=== PATIENT | male | born 1995 | race Caucasian/White ===

== ENCOUNTER 2017-07-28 09:43 | Emergency (ER) | payer OTHER ==
[~2017-07-28] VITALS: Ht 177.8 cm; Wt 70.0 kg
[2017-07-28 09:47] VITALS: TEMP 36.8; Ht 177.8 cm; Wt 70.0 kg
[2017-07-28] MEDS ORDERED: ACETAMINOPHEN 500 MG TAB PO STA (10:25)
[2017-07-28] MEDS ORDERED: IBUPROFEN 600 MG TAB PO STA (10:25)
[2017-07-28] MEDS ORDERED: BENZONATATE 100MG CAP PO ONE (10:30)
--- NOTE | 2017-07-28 10:35 | EMERGENCY ROOM VISIT NOTE ---
History Report prepared by Sam: Bob Mcguire Under the Supervision of: Dr. Sabas Kim M.D. First contact with patient: 10:06 Chief Complaint: FLU LIKE SX Stated Complaint: FLU LIKE SYMPTOMS, FEVER, COUGH, VOMITING History of Present Illness The patient is a 21 year old white male without a past medical history who presents to the ED with a cc of a fever beginning three days ago. Positive dry cough, vomiting, and fatigue. Negative sore throat, chest pain, shortness of breath, nausea, abdominal pain, diarrhea, melena, hematochezia, or abnormal urinary symptoms. His temperature in triage was 36.8 C. He notes that his girlfriend is sick with similar symptoms as well. He is from [place] and was there recently for winter break. He denies any recent antibiotic use, stream or well water exposure, recent bites, or recent camping trips. He occasionally drinks alcohol but does not smoke tobacco products. He believes that his episode of vomiting yesterday was not from something he ate. Source of History: patient Onset: three days ago Position: other (Global) Symptom Intensity: 36.8 C Quality: other (Fever) Timing: resolved Associated Symptoms: + cough, + vomiting, + fatigue, No sorethroat, No chest pain, No SOB, No nausea, No abdominal pain, No melena, No hematochezia, No diarrhea, No urinary symptoms Review of Systems See HPI for pertinent positives and negatives. A total of ten systems were reviewed and were otherwise negative. Past Medical & Surgical No chronic medical history Family History Patient reports no known family medical history. Social History Smoking Status: Former Smoker Smokeless Tobacco Use: No Alcohol Use: occasionally Drug Use: none Marital Status: in relationship Occupation Status: student Current/Historical Medications No Active Prescriptions or Reported Meds Allergies Coded Allergies: No Known Allergies (Unverified , 07/28/17) Physical Exam Vital Signs Date Time Temp Pulse Resp B/P (MAP) Pulse Ox O2 Delivery O2 Flow Rate FiO2 07/28/17 09:47 36.8 93 18 115/65 95 Room Air Physical Exam GENERAL: Awake, alert, well-appearing, NAD HENT: Normocephalic, atraumatic. Mild pharyngeal erythema. No exudate. No tonsillar swelling or uvular swelling or deviation. EYES: Normal conjunctiva. Sclera non-icteric. NECK: Supple. No nuchal rigidity. FROM. No stridor. RESPIRATORY: CTAB, no rhonchi, wheezing, crackles CARDIAC: RRR, no MRG ABDOMEN: Soft, NTND, BS+ MSK: No chest wall TTP, no LE edema NEURO: GCS 15, CN 2-12 intact, moves all 4s on command SKIN: No rash or jaundice noted. Medical Decision & Procedures ER Provider Diagnostic Interpretation: Radiology results as stated below per my review and radiologist interpretation: CHEST 2 VIEWS ROUTINE CLINICAL HISTORY: cough, fever, chills COMPARISON STUDY: No previous studies for comparison. FINDINGS: Lung volumes are normal. There is mild S-shaped curvature of the thoracic spine. No pneumothorax or pleural effusion is noted. Cardiac size is normal. Mediastinal contours are normal. There is no evidence for pulmonary edema. Apparent lower lung airspace opacity shown on lateral projection is likely artifactual. IMPRESSION: 1. No definite acute cardiopulmonary findings. 2. Apparent lower lung opacity shown on lateral projection is not confirmed on the frontal projection and is likely artifactual. Electronically signed by: Efren Krause M.D. 07/28/2017 11:17 AM Dictated Date/Time: 07/28/2017 11:15 AM Laboratory Results Test 07/28/17 10:11 Influenza Type A Antigen Neg for Influ A (NEG) Influenza Type B Antigen Neg for Influ B (NEG) Laboratory results reviewed by me Medications Administered Medications (Trade) Dose Ordered Sig/Lisbeth Route Start Time Stop Time Status Last Admin Dose Admin Acetaminophen (Tylenol Tab) 1,000 mg NOW STAT PO 07/28/17 10:25 07/28/17 10:26 DC 07/28/17 10:42 1,000 MG Benzonatate (Tessalon Perles Cap) 100 mg NOW ONCE PO 07/28/17 10:30 07/28/17 10:31 DC 07/28/17 10:42 100 MG Ibuprofen (Motrin Tab) 800 mg STK-MED ONCE .ROUTE 07/28/17 10:40 07/28/17 10:41 DC 07/28/17 10:42 800 MG ED Course 1006: The patient was evaluated in room C4. A complete history and physical exam was performed. 1145: I reevaluated the patient. Discussed results and discharge instructions: He verbalized understanding and agreement. The patient is ready for discharge. Medical Decision The patient is a 21 year old white male without a past medical history who presents to the ED with a cc of a fever beginning three days ago. Positive dry cough, vomiting, and fatigue. Negative sore throat, chest pain, shortness of breath, nausea, abdominal pain, diarrhea, melena, hematochezia, or abnormal urinary symptoms. Differential diagnosis: Etiologies such as viral syndrome, otitis, pharyngitis, pneumonia, influenza, meningitis, urinary tract infection, sepsis, bacteremia, as well as others were entertained. Patient was seen and evaluated the bedside. Patient has had some flulike symptoms symptoms for several days. Patient did have one episode of vomiting yesterday. Patient did recently travel to [place] approximately one to 2 months prior over his one or skin break. Patient of note the cervical from does have some similar symptoms. Patient otherwise is fairly well-appearing. Patient is non-stridulous and has a fairly unremarkable exam and stable vital signs. Patient did have a negative flu negative chest x-ray. They did state that there was likely artifactual appearance of the lower lobe. Given that the patient has not had any productive sputum will not treat at this time. Patient was told to continue [id number] type therapy and to follow-up with [facility] or return to the emergency department as needed. I do not believe that the patient warrants any blood work or further imaging at this time. Patient has no signs of meningismus. Patient was given strict follow -up, discharge, and return precautions. All questions were answered. Patient was deemed suitable for outpatient follow-up at this time. Patient agreed with the plan of care and was safely discharged home. Medication Reconcilliation Current Medication List: was personally reviewed by me Blood Pressure Screening Patient's blood pressure: Normal blood pressure Blood pressure disposition: Did not require urgent referral Impression Primary Impression: Influenza-like symptoms Additional Impression: Acute bronchitis Scribe Attestation The scribe's documentation has been prepared under my direction and personally reviewed by me in its entirety. I confirm that the note above accurately reflects all work, treatment, procedures, and medical decision making performed by me. Departure Information Dispostion Home / Self-Care Prescriptions No Active Prescriptions or Reported Meds Referrals No Doctor, Assigned (PCP) [facility] Forms HOME CARE DOCUMENTATION FORM, IMPORTANT VISIT INFORMATION Patient Instructions Deep Coughing, ED Fever Control, My [facility] Additional Instructions Please return to the emergency department if you have worsening or recurrent symptoms not amenable to at-home treatment. Please call for a follow-up appointment with her primary care physician. Please take your medications as prescribed. If you have other concerns and/or complaints please feel free to also call your primary care physician's office or return the ED for further evaluation, management, and treatment. You may take 600 mg Ibuprofen every 6 hours as needed for pain with food. You may take tylenol 1000 mg every 6 hours as needed for pain. You may take motrin and tylenol separately or at the same time. Take your medications as prescribed. Continue to hydrate liberally with clear fluids and advance her diet as tolerated. Please follow-up with [facility] and/or the emergency department as needed. Consider tessalon perrles or cepacol for sore throat/cough suppressant. Mucinex can be helpful to help you expectorate. You have been examined and treated today on an emergency basis only. This is not a substitute for, or an effort to provide, complete comprehensive medical care. It is impossible to recognize and treat all injuries or illnesses in a single emergency department visit. It is therefore important that you follow up closely with [facility], your PCP, and/or your specialist(s). Call as soon as possible for an appointment. Thank you for your time and consideration. I look forward to speaking with you again soon. Please don't hesitate to call us if you have any questions. Problem Qualifiers
[2017-07-28] MEDS ORDERED: IBUPROFEN 800 MG TAB ONE (10:40)
[2017-07-28 11:18] LABS: INFLUENZA B ANTIGEN Neg for Influ B (NEG)
--- NOTE | 2017-07-28 11:18 | DIAGNOSTIC IMAGING REPORT ---
CHEST 2 VIEWS ROUTINE CLINICAL HISTORY: cough, fever, chills COMPARISON STUDY: No previous studies for comparison. FINDINGS: Lung volumes are normal. There is mild S-shaped curvature of the thoracic spine. No pneumothorax or pleural effusion is noted. Cardiac size is normal. Mediastinal contours are normal. There is no evidence for pulmonary edema. Apparent lower lung airspace opacity shown on lateral projection is likely artifactual. IMPRESSION: 1. No definite acute cardiopulmonary findings. 2. Apparent lower lung opacity shown on lateral projection is not confirmed on the frontal projection and is likely artifactual. Electronically signed by: Efren Krause M.D. 07/28/2017 11:17 AM Dictated Date/Time: 07/28/2017 11:15 AM
[2017-07-28 12:11] VITALS: BP 99/51; PULSE 90; O2SAT 97
== END 2017-07-28 12:12 | disposition home or self-care (01) ==
LOC: C.EDB 09:45 → C.EDC 12:12
DX: R50.9 Fever, unspecified (principal); R05 Cough; R11.10 Vomiting, unspecified; R53.83 Other fatigue; J20.9 Acute bronchitis, unspecified; Z87.891 Personal history of nicotine dependence

== ENCOUNTER 2017-07-30 06:34 | Emergency (ER) | payer OTHER ==
[~2017-07-30] VITALS: Ht 177.8 cm; Wt 69.6 kg
[2017-07-30 06:39] VITALS: TEMP 37; Ht 177.8 cm; Wt 69.6 kg
[2017-07-30] MEDS ORDERED: KETOROLAC TROMETHAMINE 30 MG/ML VIAL IV STA (06:51)
[2017-07-30] MEDS ORDERED: SODIUM CHLORIDE 0.9% 1000ML 1,000 ML IV STA (06:51)
[2017-07-30] MEDS ORDERED: ONDANSETRON INJ 2 MG/ML 2 ML VIAL IV STA (06:51)
[2017-07-30] MEDS ORDERED: ALBUTEROL 0.083% NEBU SOLN 3 ML VIAL INH STA (06:51)
[2017-07-30] MEDS ORDERED: ALBUTEROL HFA 8 GM INHALER INH ONE ×2 (07:00→09:00)
--- NOTE | 2017-07-30 07:06 | DIAGNOSTIC IMAGING REPORT ---
CHEST ONE VIEW PORTABLE HISTORY: 21 years-old Male Pt c/o SOB acute shortness of breath COMPARISON: Chest radiograph 07/28/2017 TECHNIQUE: Portable AP view of the chest FINDINGS: There are progressively worsened alveolar opacities of the left lung base. No pneumothorax, pleural effusion or overt pulmonary edema. The right lung is clear. Bones of the chest appear grossly intact. IMPRESSION: Progressively worsened alveolar opacities of the left lung base suggest pneumonia. The above report was generated using voice recognition software. It may contain grammatical, syntax or spelling errors. Electronically signed by: Tres Ndiaye M.D. 07/30/2017 7:05 AM Dictated Date/Time: 07/30/2017 7:03 AM
[2017-07-30] MEDS ORDERED: LEVAQUIN 750MG / 150ML D5W IV STA (07:11)
[2017-07-30 07:50] VITALS: O2SAT 97
[2017-07-30 07:53] LABS: HEMATOCRIT 44.1 % (42-52); HEMOGLOBIN 15.2 g/dL (14.0-18.0); MEAN CELL VOLUME 85.6 fL (80-100); MEAN CORPUSCULAR HEMOGLOBIN 29.5 pg (25-34); MEAN CORPUSCULAR HGB CONC 34.5 g/dl (32-36); MEAN PLATELET VOLUME 10.4 fL (7.4-10.4); PLATELET COUNT 181 K/uL (130-400); RED CELL DISTRIBUTION WIDTH CV 12.4 % (11.5-14.5); WHITE BLOOD COUNT 7.52 K/uL (4.8-10.8)
[2017-07-30 08:06] LABS: ALBUMIN 3.8 gm/dl (3.4-5.0); CALCIUM 9.3 mg/dl (8.5-10.1); CREATININE 1.25 mg/dl (0.60-1.40); POTASSIUM 3.5 mmol/L (3.5-5.1)
[2017-07-30 08:09] LABS: TOTAL PROTEIN 7.9 gm/dl (6.4-8.2)
[2017-07-30 08:25] LABS: BASO % 0.1 %; BASO ABS # 0.01 K/uL (0-0.2); EOS % 0.7 %; EOS ABS # 0.05 K/uL (0-0.5); LYMPH % 15.6 %; LYMPH ABS # 1.17 K/uL (1.2-3.4); MONO % 5.1 %; MONO ABS # 0.38 K/uL (0.11-0.59); NEUT % 78.5 %; NEUT ABS # 5.91 K/uL (1.4-6.5)
[2017-07-30 08:32] LABS: INFLUENZA B ANTIGEN Neg for Influ B (NEG)
[2017-07-30] MEDS ORDERED: LEVO1TAB35 PO (09:05)
[2017-07-30] MEDS ORDERED: ONDA4TAB10 SL (09:05)
[2017-07-30 09:27] VITALS: BP 98/54; PULSE 100; O2SAT 98
--- NOTE | 2017-07-30 09:51 | EMERGENCY ROOM VISIT NOTE ---
History Report prepared by Sam: Filiberto Michelle Under the Supervision of: Dr. Jeancarlos Mcnamara M.D. First contact with patient: 06:46 Chief Complaint: FLU LIKE SX Stated Complaint: COUGHING,FEVER,VOMITING,NAUSEA History of Present Illness The patient is a 21 year old male who presents to the Emergency Room with complaints of flu-like symptoms that began to worsen this morning when the patient woke up. The patient was in the emergency department two days ago and was diagnosed with bronchitis. Today he woke up with chills and was shivering. He also vomited today and began to develop a cough. He is nauseous but denies any abdominal pain. The patient notes that his mother knows he is here, but he would not like us to call her at this time. Source of History: patient Onset: This morning Position: other (Global) Quality: other (Chills/fevers) Timing: worsening Associated Symptoms: + cough, + nausea, + vomiting Review of Systems See HPI for pertinent positives & negatives. A total of 10 systems reviewed and were otherwise negative. Past Medical & Surgical Medical Problems: (1) Appendicitis Family History Patient reports no known family medical history. Social History Smoking Status: Never Smoker Alcohol Use: occasionally Drug Use: none Marital Status: in relationship Occupation Status: student Current/Historical Medications Scheduled Levofloxacin (Levaquin), 750 MG PO DAILY Ondasetron Odt (Zofran Odt), 4 MG SL Q6H Allergies Coded Allergies: No Known Allergies (Unverified , 07/30/17) Physical Exam Vital Signs Date Time Temp Pulse Resp B/P (MAP) Pulse Ox O2 Delivery O2 Flow Rate FiO2 07/30/17 09:27 100 18 98/54 98 07/30/17 08:50 106 07/30/17 08:45 102 18 97/52 98 07/30/17 07:50 97 Room Air 07/30/17 07:30 110 20 97/52 92 Room Air 07/30/17 06:39 37.0 129 20 104/55 92 Room Air Physical Exam GENERAL: Patient is a healthy-appearing well-nourished male HEAD: Normocephalic atraumatic EYES: Ocular movements intact pupils equal and react to light OROPHARYNX mucous membranes are moist no exudates present no erythema or edema present NECK: Supple no nuchal rigidity. No evidence of meningitis encephalitis on exam. CHEST: Good equal expansion LUNGS: Clear and equal to auscultation CARDIAC: Normal S1 and S2 ABDOMEN: Soft nontender no guarding BACK: No CVA tenderness EXTREMITIES: No pain upon palpation normal muscle strength in all groups no clubbing cyanosis or edema NEURO: Patient is following commands and answering questions appropriately. Alert and oriented x3 Cranial Nerves 2-12 grossly intact Medical Decision & Procedures ER Provider Diagnostic Interpretation: Radiology results as stated below per my review and radiologist interpretation: CHEST ONE VIEW PORTABLE HISTORY: 21 years-old Male Pt c/o SOB acute shortness of breath COMPARISON: Chest radiograph 07/28/2017 TECHNIQUE: Portable AP view of the chest FINDINGS: There are progressively worsened alveolar opacities of the left lung base. No pneumothorax, pleural effusion or overt pulmonary edema. The right lung is clear. Bones of the chest appear grossly intact. IMPRESSION: Progressively worsened alveolar opacities of the left lung base suggest pneumonia. The above report was generated using voice recognition software. It may contain grammatical, syntax or spelling errors. Electronically signed by: Tres Ndiaye M.D. 07/30/2017 7:05 AM Dictated Date/Time: 07/30/2017 7:03 AM Laboratory Results 07/30/17 07:15 Red Blood Count 5.15, Mean Corpuscular Volume 85.6, Mean Corpuscular Hemoglobin 29.5, Mean Corpuscular Hemoglobin Concent 34.5, Mean Platelet Volume 10.4, Neutrophils (%) (Auto) 78.5, Lymphocytes (%) (Auto) 15.6, Monocytes (%) (Auto) 5.1, Eosinophils (%) (Auto) 0.7, Basophils (%) (Auto) 0.1, Neutrophils # (Auto) 5.91, Lymphocytes # (Auto) 1.17, Monocytes # (Auto) 0.38, Eosinophils # (Auto) 0.05, Basophils # (Auto) 0.01 07/30/17 07:15 Test 07/30/17 07:14 07/30/17 07:15 07/30/17 08:40 Influenza Type A Antigen Neg for Influ A (NEG) Influenza Type B Antigen Neg for Influ B (NEG) White Blood Count 7.52 K/uL (4.8-10.8) Red Blood Count 5.15 M/uL (4.7-6.1) Hemoglobin 15.2 g/dL (14.0-18.0) Hematocrit 44.1 % (42-52) Mean Corpuscular Volume 85.6 fL (80-100) Mean Corpuscular Hemoglobin 29.5 pg (25-34) Mean Corpuscular Hemoglobin Concent 34.5 g/dl (32-36) Platelet Count 181 K/uL (130-400) Mean Platelet Volume 10.4 fL (7.4-10.4) Neutrophils (%) (Auto) 78.5 % Lymphocytes (%) (Auto) 15.6 % Monocytes (%) (Auto) 5.1 % Eosinophils (%) (Auto) 0.7 % Basophils (%) (Auto) 0.1 % Neutrophils # (Auto) 5.91 K/uL (1.4-6.5) Lymphocytes # (Auto) 1.17 K/uL (1.2-3.4) Monocytes # (Auto) 0.38 K/uL (0.11-0.59) Eosinophils # (Auto) 0.05 K/uL (0-0.5) Basophils # (Auto) 0.01 K/uL (0-0.2) RDW Standard Deviation 39.0 fL (36.4-46.3) RDW Coefficient of Variation 12.4 % (11.5-14.5) Immature Granulocyte % (Auto) 0.0 % Immature Granulocyte # (Auto) 0.00 K/uL (0.00-0.02) Anion Gap 8.0 mmol/L (3-11) Est Creatinine Clear Calc Drug Dose 92.0 ml/min Estimated GFR () 94.8 Estimated GFR (Non- 81.8 BUN/Creatinine Ratio 10.0 (10-20) Calcium Level 9.3 mg/dl (8.5-10.1) Total Bilirubin 0.6 mg/dl (0.2-1) Direct Bilirubin 0.2 mg/dl (0-0.2) Aspartate Amino Transf (AST/SGOT) 17 U/L (15-37) Alanine Aminotransferase (ALT/SGPT) 19 U/L (12-78) Alkaline Phosphatase 35 U/L (45-117) Total Protein 7.9 gm/dl (6.4-8.2) Albumin 3.8 gm/dl (3.4-5.0) Monoscreen NEG (NEG) Urine Color DK YELLOW Urine Appearance CLEAR (CLEAR) Urine pH 5.0 (4.5-7.5) Urine Specific [place] 1.020 (1.000-1.030) Urine Protein NEG (NEG) Urine Glucose (UA) NEG (NEG) Urine Ketones TRACE (NEG) Urine Occult Blood NEG (NEG) Urine Nitrite NEG (NEG) Urine Bilirubin NEG (NEG) Urine Urobilinogen NEG (NEG) Urine Leukocyte Esterase NEG (NEG) Labs reviewed by ED physician. Medications Administered Medications (Trade) Dose Ordered Sig/Lisbeth Route Start Time Stop Time Status Last Admin Dose Admin Ketorolac Tromethamine (Toradol Inj) 30 mg NOW STAT IV 07/30/17 06:51 07/30/17 06:54 DC 07/30/17 07:25 30 MG Albuterol (Ventolin Hfa Inhaler) 2 puffs NOW ONCE INH 07/30/17 07:00 07/30/17 07:01 DC 07/30/17 07:36 2 PUFFS Albuterol Sulfate (Ventolin 0.083% 2.5MG/3ML Neb) 2.5 mg NOW STAT INH 07/30/17 06:51 07/30/17 06:54 DC 07/30/17 07:26 2.5 MG Sodium Chloride 1,000 ml @ 999 mls/hr Q1H1M STAT IV 07/30/17 06:51 07/30/17 07:51 DC 07/30/17 07:25 999 MLS/HR Ondansetron HCl (Zofran Inj) 4 mg NOW STAT IV 07/30/17 06:51 07/30/17 06:54 DC 07/30/17 07:25 4 MG Levofloxacin (Levaquin / D5W) 750 mg NOW STAT IV 07/30/17 07:11 07/30/17 07:13 DC 07/30/17 07:36 750 MG ED Course 0647: Past medical records reviewed. The patient was evaluated in room B10. A complete history and physical examination was performed. 0651: Ordered Zofran 4 mg IV, Sodium Chloride 1000 mL @ 999 mL/hr IV, Albuterol Sulfate 2.5 mg INH, Toradol 30 mg IV 0700: Ordered Albuterol 2 puffs, Levofloxacin 750 mg IV. 0900: Ordered Albuterol 2 puffs INH. 0940: Upon reexamination the patient is resting in bed. I discussed results and treatment plan with the patient. He verbalizes agreement and understanding. The patient is ready for discharge. Medical Decision Differential diagnosis: Etiologies such as viral syndrome, otitis, pharyngitis, pneumonia, influenza, meningitis, urinary tract infection, sepsis, bacteremia, as well as others were entertained. Impression Primary Impression: Pneumonia Scribe Attestation The scribe's documentation has been prepared under my direction and personally reviewed by me in its entirety. I confirm that the note above accurately reflects all work, treatment, procedures, and medical decision making performed by me. Departure Information Dispostion Home / Self-Care Prescriptions Ondasetron Odt (ZOFRAN ODT) 4 Mg Tab 4 MG SL Q6H for Nausea, #6 TAB Prov: Jeancarlos Mcnamara MD 07/30/17 Levofloxacin (Levaquin) 750 Mg Tab 750 MG PO DAILY for 4 Days, #4 TAB Prov: Jeancarlos Mcnamara MD 07/30/17 Referrals No Doctor, Assigned (PCP) Forms HOME CARE DOCUMENTATION FORM, IMPORTANT VISIT INFORMATION Patient Instructions My [facility] Additional Instructions Use inhaler twice every 6 hours Increase fluids next 48 hours Take 600 mg Ibuprofen every 6 hours Take 1000 mg Tylenol every 6 hours You have been examined and treated today on an emergency basis only. This is not a substitute for, or an effort to provide, complete comprehensive medical care. It is impossible to recognize and treat all injuries or illnesses in a single emergency department visit. It is therefore important that you follow up closely with your PCP. Call as soon as possible for an appointment. Thank you for your time and consideration. I look forward to speaking with you again soon. Please don't hesitate to call us if you have any questions. Problem Qualifiers Primary Impression: Pneumonia Pneumonia type: due to unspecified organism Laterality: right Lung location : lower lobe of lung Qualified Codes: J18.1 - Lobar pneumonia, unspecified organism
[2017-07-31 14:37] LABS: EBV EARLY ANTIGEN AB < 9.00 U/ML
== END 2017-07-30 09:27 | disposition home or self-care (01) ==
LOC: C.EDB 06:36
DX: J18.0 Bronchopneumonia, unspecified organism (principal); R11.2 Nausea with vomiting, unspecified; Z87.19 Personal history of other diseases of the digestive system